=== PATIENT | female | born 1970 | race Caucasian/White ===

== ENCOUNTER → 2017-01-13 | Day surgery (SDC) | payer OTHER ==
[~2017-01-13] VITALS: Ht 162.6 cm; Wt 95.3 kg
[~2017-01-13] MED LIST: COZAAR50 MG PO; LANSOPRAZOLE30 MG PO; NEURONTIN 300300 MG PO; PROZAC40 MG PO; TIROSINT137 MCG PO; XANAX XR1 MG PO
== END | disposition home or self-care (01) ==
LOC: OR 07:06
PROVIDERS: Surgery
PROC: 0DB68ZX Excision of Stomach, Via Natural or Artificial Opening Endoscopic, Diagnostic (ICD-10-PCS; 2017-01-13)
PROC: 0DB48ZX Excision of Esophagogastric Junction, Via Natural or Artificial Opening Endoscopic, Diagnostic (ICD-10-PCS; principal; 2017-01-13 10:35)
DX: K44.9 Diaphragmatic hernia without obstruction or gangrene (principal); K21.9 Gastro-esophageal reflux disease without esophagitis; R10.13 Epigastric pain; I10 Essential (primary) hypertension; E03.9 Hypothyroidism, unspecified; M19.90 Unspecified osteoarthritis, unspecified site; G89.29 Other chronic pain; F17.210 Nicotine dependence, cigarettes, uncomplicated; Z79.899 Other long term (current) drug therapy; Z88.5 Allergy status to narcotic agent; Z90.710 Acquired absence of both cervix and uterus; Z90.722 Acquired absence of ovaries, bilateral; Z80.0 Family history of malignant neoplasm of digestive organs; Z90.49 Acquired absence of other specified parts of digestive tract; Z86.69 Personal history of other diseases of the nervous system and sense organs
CPT/HCPCS: J7120

== ENCOUNTER 2020-11-20 02:42 | Emergency (ER) | payer OTHER ==
[~2020-11-20 02:42] MED LIST changes: +ANUSOL-HC CREAM30 GM PR; +FLEXERIL 10 MG10 MG PO; +IBUPROFEN600 MG PO; +IBUPROFEN800 MG PO; +PREDNISONE 50 M50 MG PO; +SYNTHROID25 MCG PO; +VIBRAMYCIN100 MG PO; +Voltaren Gel 1 % TOP
[2020-11-20 03:23] LABS: HEMOGLOBIN 11.5 gm/dl (12.3-15.3); RED BLOOD COUNT 4.61 M/UL (4.00-5.10)
[2020-11-20 03:32] LABS: BUN/CREATININE RATIO 31 (0-10)
[2020-11-20] MEDS ORDERED: IBUPROFEN600 MG PO (05:34)
== END 2020-11-20 06:27 | disposition home or self-care (01) ==
LOC: ER1 02:42
PROVIDERS: Internal Medicine
DX: R07.89 Other chest pain (principal); I10 Essential (primary) hypertension; E03.9 Hypothyroidism, unspecified; F17.210 Nicotine dependence, cigarettes, uncomplicated; Z90.49 Acquired absence of other specified parts of digestive tract
CPT/HCPCS: 71046; 80053; 80307; 81001; 84484; 84703; 85025; 93005; 96374; 99284; J2405

== ENCOUNTER 2020-12-18 10:50 | Emergency (ER) | payer OTHER ==
[2020-12-18 11:34] LABS: HEMOGLOBIN 12.6 gm/dl (12.3-15.3); WHITE BLOOD COUNT 10.1 K/UL (4.5-11.0)
[2020-12-18 12:00] LABS: BUN/CREATININE RATIO 28 (0-10)
[2020-12-18] MEDS ORDERED: HYDROXYZINE HCL25 MG PO (14:12)
== END 2020-12-18 14:28 | disposition home or self-care (01) ==
LOC: ER1 10:50
PROVIDERS: Internal Medicine
DX: F41.0 Panic disorder [episodic paroxysmal anxiety] (principal); F32.9 Major depressive disorder, single episode, unspecified; I10 Essential (primary) hypertension; F17.210 Nicotine dependence, cigarettes, uncomplicated
CPT/HCPCS: 70450; 71045; 80053; 80307; 82550; 82553; 83874; 84484; 85025; 93005; 96374; 96375; 99285; J2060; J2405

== ENCOUNTER 2021-03-12 00:03 | Emergency (ER) | payer OTHER ==
[~2021-03-12 00:03] MED LIST changes: +HYDROXYZINE HCL25 MG PO
[2021-03-12 03:09] LABS: HEMOGLOBIN 11.6 gm/dl (12.3-15.3); RED BLOOD COUNT 4.62 M/UL (4.00-5.10); WHITE BLOOD COUNT 6.8 K/UL (4.5-11.0)
[2021-03-12 03:38] LABS: BUN/CREATININE RATIO 29 (0-10)
[2021-03-12] MEDS ORDERED: TESSALON PERLE100 MG PO (04:20)
== END 2021-03-12 04:25 | disposition home or self-care (01) ==
LOC: ER1 00:03
PROVIDERS: Physician Assistant
DX: R07.2 Precordial pain (principal); R21 Rash and other nonspecific skin eruption; E11.9 Type 2 diabetes mellitus without complications; J45.909 Unspecified asthma, uncomplicated; K21.9 Gastro-esophageal reflux disease without esophagitis; I10 Essential (primary) hypertension; Z90.49 Acquired absence of other specified parts of digestive tract; Z90.710 Acquired absence of both cervix and uterus; Z79.899 Other long term (current) drug therapy; Z20.822 Contact with and (suspected) exposure to COVID-19
CPT/HCPCS: 71046; 80053; 82550; 82553; 83874; 84484; 85025; 93005; 99285; U0002

== ENCOUNTER 2021-06-16 04:21 | Emergency (ER) | payer OTHER ==
[~2021-06-16 04:21] MED LIST changes: +TESSALON PERLE100 MG PO
== END 2021-06-16 06:41 | disposition home or self-care (01) ==
LOC: ER1 04:21
DX: R51.9 Headache, unspecified (principal); M54.2 Cervicalgia; F17.200 Nicotine dependence, unspecified, uncomplicated
CPT/HCPCS: 96374; 96375; 99283; J1200; J1885; J2765

== ENCOUNTER 2021-07-26 04:51 | Emergency (ER) | payer OTHER ==
[2021-07-26] MEDS ORDERED: NAPROSYN500 MG PO (05:46)
[2021-07-26] MEDS ORDERED: ONDANSETRON ODT4 MG SL (05:46)
[2021-07-26] MEDS ORDERED: CYCLOBENZAPRINE10 MG PO (05:46)
== END 2021-07-26 06:26 | disposition home or self-care (01) ==
LOC: ER1 04:51
DX: G43.909 Migraine, unspecified, not intractable, without status migrainosus (principal); I10 Essential (primary) hypertension; M54.2 Cervicalgia; G89.29 Other chronic pain; Z90.49 Acquired absence of other specified parts of digestive tract; Z90.710 Acquired absence of both cervix and uterus; Z88.5 Allergy status to narcotic agent; F17.200 Nicotine dependence, unspecified, uncomplicated
CPT/HCPCS: 96374; 96375; 99283; J1200; J1885; J2405; J2765